=== PATIENT | female | born 2000 | race Caucasian/White ===

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

== ENCOUNTER 2020-11-24 02:00 | Emergency (ER) | payer OTHER ==
[~2020-11-24] VITALS: Ht 177.8 cm; Wt 74.8 kg
--- NOTE | 2020-11-24 02:00 | NUR ---
PT TRANSFERRED TO ER BED 08 FROM EMS [facility]
[2020-11-24] MEDS ORDERED: FAMOTIDINE 20 MG/2 ML VIAL IVP ONE (02:05)
[2020-11-24] MEDS ORDERED: ONDANSETRON 4 MG/2 ML VIAL IVP ONE (02:05)
[2020-11-24] MEDS ORDERED: NACL 0.9% 1,000 ML IV ONE (02:05)
[2020-11-24 02:07] VITALS: BP 129/78
--- NOTE | 2020-11-24 02:50 | NUR ---
20 YO/F BIBA W CO NAUSEA AND "HEART RACING" S/P DRUG AND ALCOHOL INGESTION. PATIENT REPORTS ONLY EXPERIENCING NAUSEA AT THIS TIME. PATIENT REPORTS SHE IS FINE AND FEELS BETTER. PATIENT PRESENTS AOX4, GCS 15, BREATHING EVEN AND UNLABORED, PERRL AT 6MM, BOWEL SOUNDS PRESENT. PATIENT IS SMILING AND LAUGHING.CONNECTED TO MONITOR W VS TACHYCARDIC AND BP 94/42. ERMD AWARE OF VS. PATIENT LAYING IN BED LOCKED IN LOWEST POSITION W X1 SIDERAIL UP. HOB SLIGHTLY ELEVATED. NAD NOTED, WILL CONTINUE TO MONITOR. PMH:FIBROMYALGIA ALLERGIES: CHLORHEXIDINE
--- NOTE | 2020-11-24 02:57 | NUR ---
TREVON Neumann FRIEND- #[id number]
--- NOTE | 2020-11-24 03:35 | NUR ---
TREVON CALLED AGAIN REGARDING PATIENT- NOTIFIED WILL CALL BACK AND THAT PATIENT IS AWAKE AND STABLE
[2020-11-24 04:35] VITALS: BP 99/60
--- NOTE | 2020-11-24 04:35 | NUR ---
Patient discharged with v/s stable. Written and verbal after care instructions given and explained. Patient verbalized understanding. Ambulatory with steady gait. All questions addressed prior to discharge. Advised to follow up with PMD.
== END 2020-11-24 04:35 | disposition home or self-care (01) ==
LOC: MED 02:00
DX: F10.129 Alcohol abuse with intoxication, unspecified (principal)
CPT/HCPCS: 96361; 96374; 96375; 99284; J2405; J3490; J7030